=== PATIENT | female | born 1940 | race Caucasian/White ===

== ENCOUNTER → 2017-11-02 | Outpatient (CLI) | payer OTHER ==
[~2017-11-02] MED LIST: ACET-66 PO; AMLO5TAB5 PO; BUDE10.2 IH; BUSP15TA3 PO; FENO145T37 PO; LEVO150T6 PO; MONT10TA21 PO; PROVENTIL HFA PO; RIVA10TA PO; TEMA15CA5 PO; TRAM50TA4 PO; citalopram PO
== END | disposition home or self-care (01) ==
LOC: RAH 15:01
PROVIDERS: ATTEND Internal Medicine
DX: Z12.31 Encounter for screening mammogram for malignant neoplasm of breast (principal)
CPT/HCPCS: 77067

== ENCOUNTER → 2018-06-10 | Outpatient (CLI) | payer OTHER | END | disposition home or self-care (01) | LOC: RAH 09:39 | PROVIDERS: ATTEND Internal Medicine | DX: I11.9 Hypertensive heart disease without heart failure (principal); R06.00 Dyspnea, unspecified; F17.200 Nicotine dependence, unspecified, uncomplicated | CPT/HCPCS: 93306 ==

== ENCOUNTER → 2018-06-21 | Outpatient (CLI) | payer OTHER | END | disposition home or self-care (01) | LOC: RAH 13:40 | PROVIDERS: ATTEND Internal Medicine | DX: I25.10 Atherosclerotic heart disease of native coronary artery without angina pectoris (principal); R06.00 Dyspnea, unspecified; N20.0 Calculus of kidney; J84.10 Pulmonary fibrosis, unspecified; F17.200 Nicotine dependence, unspecified, uncomplicated | CPT/HCPCS: 71250 ==

== ENCOUNTER → 2018-07-25 | Outpatient (CLI) | payer OTHER | END | disposition home or self-care (01) | LOC: OIH 14:44 | PROVIDERS: ATTEND Internal Medicine | DX: Z13.6 Encounter for screening for cardiovascular disorders (principal) | CPT/HCPCS: 75571 ==

== ENCOUNTER → 2018-08-23 | Outpatient (CLI) | payer OTHER ==
[~2018-08-23] VITALS: Ht 167.6 cm; Wt 119.3 kg
[~2018-08-23] MED LIST changes: +REGADENOSON 0.4 MG/5 ML PF SYG IVP SCH
== END | disposition home or self-care (01) ==
LOC: RAH 08:54
PROVIDERS: ATTEND Internal Medicine
DX: I50.9 Heart failure, unspecified (principal); R94.30 Abnormal result of cardiovascular function study, unspecified
CPT/HCPCS: 78452; 93017; 96374; A9500 ×2; J2785

== ENCOUNTER 2018-10-17 05:53 | Day surgery (SDC) | payer OTHER ==
[2018-10-15 13:50] VITALS: BP 146/71
[2018-10-15 14:15] VITALS: BP 146/71
[2018-10-15 14:15] LABS: EOSINOPHILS % (AUTO) 1.7 % (0.0-8.0); HEMATOCRIT 45.3 % (36-48); LYMPHOCYTES % (AUTO) 20.5 % (21.0-51.0); MEAN CORPUSCULAR HEMOGLOBIN 30.9 pg (27.0-33.0); MEAN CORPUSCULAR VOLUME 90.7 fL (79-99); MONOCYTES % (AUTO) 9.1 % (3.0-13.0); NEUTROPHILS % (AUTO) 67.7 % (40.0-77.0); PLATELET COUNT (AUTO) 199 K/uL (130-400); WHITE BLOOD COUNT (AUTO) 9.7 K/uL (4.8-10.8)
[2018-10-15 14:25] LABS: APPEARANCE,URINE CLEAR (CLEAR); BILIRUBIN,URINE NEGATIVE (NEGATIVE); COLOR,URINE YELLOW (YELLOW); GLUCOSE, URINE (UA) NEGATIVE (NEGATIVE); KETONES,URINE NEGATIVE (NEGATIVE); LEUKOCYTE ESTERASE ,URINE LARGE (NEGATIVE); NITRATE,URINE NEGATIVE (NEGATIVE); OCCULT BLOOD,URINE TRACE-LYSED (NEGATIVE); PH,URINE 5.5 (5.0-8.0); PROTEIN,URINE NEGATIVE (NEGATIVE); UROBILINOGEN,URINE 0.2 mg/dL (0.2-1.0)
[2018-10-15 14:27] LABS: INR 0.93 (0.85-1.15); PARTIAL THROMBOPLASTIN TIME 25.5 SEC (26.3-35.5); PROTHROMBIN TIME 9.8 SEC (9.6-11.6)
[2018-10-15 14:35] LABS: CREATININE 1.1 mg/dL (0.5-1.5); POTASSIUM 3.6 mmol/L (3.5-5.1)
[2018-10-15 14:40] LABS: SQUAMOUS EPITHELIAL CELL,UR 0-2 /HPF (0-2)
[2018-10-15 14:41] LABS: BACTERIA,URINE Few /HPF (None Seen)
--- NOTE | 2018-10-16 11:41 | NUR ---
LABS ABNORMAL UA FAXED TO [facility] (DR Ronald GRANADOS) PER THERE REQUEST, AWAITING FOR FURTHER ORDERS IF ANY.
--- NOTE | 2018-10-16 16:43 | NUR ---
LABS RECEIVED ORDERS FROM ABNORMAL UA REPORTED EARLIER, URINE CULTURE ORDERED.
[2018-10-17] VITALS (9 sets, daily range): BP systolic 117–140; BP diastolic 45–69
[~2018-10-17] VITALS: Ht 165.3 cm; Wt 122.0 kg
[~2018-10-17 05:53] MED LIST changes: -ACET-66 PO; +AEC81 PO; +ALBU2.5V2 IH; +ALBU90AE IH; +AMLO5TAB9 PO; -BUDE10.2 IH; -BUSP15TA3 PO; +CHLO4TAB32 PO; +ESOM40CA PO; -FENO145T37 PO; +FLUT1BLS3 IH; +FURO40TA5 PO; +ISOS20TA7 PO; +ISOS60TA4 PO; -LEVO150T6 PO; +LEVO175T9 PO; +MV-M1TAB57 PO; +NITR0.4T50 SL; -PROVENTIL HFA PO; -REGADENOSON 0.4 MG/5 ML PF SYG IVP SCH; -RIVA10TA PO; +ROSU5TAB11 PO; -TEMA15CA5 PO; -TRAM50TA4 PO; +WHEA1POW2 PO; -citalopram PO
[2018-10-17] MEDS ORDERED: SODIUM CHLORIDE 0.9% 1000ML 1,000 ML IV ONE (06:07)
[2018-10-17] MEDS ORDERED: ALLERGY SHOTS IM (07:19)
[2018-10-17] MEDS ORDERED: XOLAIR IM (07:19)
[2018-10-17] MEDS ORDERED: IOHEXOL 350 MG/ML 100ML INFUS..BTL IV ONE (08:47)
[2018-10-17] MEDS ORDERED: IOHEXOL-350 50ML VIAL IV ONE (08:47)
[2018-10-17] MEDS ORDERED: LIDOCAINE HCL 1% 20 ML VIAL ONE (08:47)
[2018-10-17] MEDS ORDERED: NITROGLYCERIN 5 MG/ML 10 ML VIAL IV ONE (08:47)
[2018-10-17] MEDS ORDERED: MIDAZOLAM HCL 1 MG/ML 2ML VIAL ONE (08:47)
[2018-10-17] MEDS ORDERED: BIVALIRUDIN 250 MG/VIAL IV ONE (08:48)
--- NOTE | 2018-10-17 09:00 | NUR ---
procedure pt taken to laborer tin can for procedure. family at bedside. pt awake and alert
[2018-10-17] MEDS ORDERED: SODIUM CHLORIDE 0.9% 1000ML 1,000 ML IV SCH (09:45)
--- NOTE | 2018-10-17 10:15 | NUR ---
POST RECEIVED PT FROM LOAD BLOCKER, S/P [facility], PT AWAKE AND ALERT, NO DISTRESS NOTED. DENIES ANY PAIN OR DISCOMFORTS. RIGHT GROIN DRESSING DRY AND INTACT, SEE POST LOAD BLOCKER ASSESSMENT ,VS STABLE . PT INSTRUCTED TO KEEP BEDREST FOR 4 HRS. PLAN OF CARE DISCUSS WITH PATIENT AND FAMILY. DR Ronald GRANADOS SPOKE TO FAMILY ABOUT [facility] FINDINGS.
--- NOTE | 2018-10-17 14:00 | NUR ---
DC DC INSTRUCTIONS GIVEN TO PT / PT S DAUGHTER WITH RX, INSTRUCTED TO F/U WITH DR. GRANADOS, DR. Robel BONE, INSTRUCTED ON NEW MED REGIMEN. PIV REMOVED. CATHETER INTACT, SITE ASYMPTOMATIC, RIGHT GROIN DRESSING DRY AND INTACT, NO HEMATOMA OR BLEEDING TO SITE. VS STABLE.
--- NOTE | 2018-10-17 14:30 | NUR ---
DC PT DC HOME VIA WC,NO DISTRESS NOTED. ACCOMPANIED BY DAUGHTER, RIGHT GROIN DRESSING DRY AND INTACT
== END 2018-10-17 14:30 | disposition home or self-care (01) ==
LOC: DAH 05:53
PROVIDERS: ATTEND Internal Medicine Cardiovascular Disease
DX: I25.118 Atherosclerotic heart disease of native coronary artery with other forms of angina pectoris (principal); I10 Essential (primary) hypertension; E78.5 Hyperlipidemia, unspecified; J45.909 Unspecified asthma, uncomplicated; E66.01 Morbid (severe) obesity due to excess calories; Z79.899 Other long term (current) drug therapy; Z98.890 Other specified postprocedural states; M19.90 Unspecified osteoarthritis, unspecified site; Z88.8 Allergy status to other drugs, medicaments and biological substances; Z88.2 Allergy status to sulfonamides; Z68.41 Body mass index [BMI] 40.0-44.9, adult; R94.39 Abnormal result of other cardiovascular function study; Z79.01 Long term (current) use of anticoagulants
CPT/HCPCS: 36415; 71045; 80048; 81001; 85025; 85610; 85730; 87077; 87088; 87186; 93005; 93458; A4606; C1760; C1894; J1644; J3490; J7030; Q9965; Q9967 ×2; J0583; J2250

== ENCOUNTER → 2018-11-18 | Outpatient (CLI) | payer OTHER ==
[~2018-11-18] MED LIST changes: +ALLERGY SHOTS IM; -AMLO5TAB5 PO; -ISOS20TA7 PO; -ISOS60TA4 PO; -ROSU5TAB11 PO; +ROSU5TAB12 PO; +XOLAIR IM
== END | disposition home or self-care (01) ==
LOC: RAH 10:37
PROVIDERS: ATTEND Internal Medicine
DX: Z12.31 Encounter for screening mammogram for malignant neoplasm of breast (principal)
CPT/HCPCS: 77067

== ENCOUNTER → 2019-01-24 | Outpatient (CLI) | payer OTHER | END | disposition home or self-care (01) | LOC: RAH 11:06 | PROVIDERS: ATTEND Internal Medicine | DX: R22.31 Localized swelling, mass and lump, right upper limb (principal) | CPT/HCPCS: 76882 ==

== ENCOUNTER → 2019-03-27 | Outpatient (CLI) | payer OTHER | END | disposition home or self-care (01) | LOC: OIH 11:48 | PROVIDERS: ATTEND Internal Medicine | DX: S33.140A Subluxation of L4/L5 lumbar vertebra, initial encounter (principal); M47.816 Spondylosis without myelopathy or radiculopathy, lumbar region; M43.26 Fusion of spine, lumbar region; N20.0 Calculus of kidney; M25.551 Pain in right hip; W10.8XXA Fall (on) (from) other stairs and steps, initial encounter; Y93.89 Activity, other specified; Y92.89 Other specified places as the place of occurrence of the external cause; Y99.8 Other external cause status | CPT/HCPCS: 72100; 72220; 73502 ==

== ENCOUNTER → 2020-10-20 | Outpatient (CLI) | payer MEDICARE ==
[~2020-10-20] MED LIST changes: +ALBUTEROL SULFATE 0.083% 2.5 MG/3 ML INH IH ONE; +AMLO-257 PO; -AMLO5TAB9 PO
== END | disposition home or self-care (01) ==
LOC: RESP 10:41
PROVIDERS: ATTEND Allergy & Immunology
DX: J45.41 Moderate persistent asthma with (acute) exacerbation (principal); R06.02 Shortness of breath
CPT/HCPCS: 94060; 94727; 94729

== ENCOUNTER → 2021-02-11 | Outpatient (CLI) | payer MEDICARE ==
[~2021-02-11] MED LIST changes: -ALBUTEROL SULFATE 0.083% 2.5 MG/3 ML INH IH ONE
== END | disposition home or self-care (01) ==
LOC: RAH 11:33
PROVIDERS: ATTEND Internal Medicine
DX: Z01.811 Encounter for preprocedural respiratory examination (principal); J44.9 Chronic obstructive pulmonary disease, unspecified; J98.4 Other disorders of lung
CPT/HCPCS: 71046

== ENCOUNTER 2021-02-24 10:09 | Day surgery (SDC) | payer MEDICARE ==
[2021-02-22 11:50] LABS: BASOPHILS % (AUTO) 1.3 % (0.0-5.0); EOSINOPHILS % (AUTO) 2.5 % (0.0-8.0); HEMATOCRIT 47.2 % (36-48); LYMPHOCYTES % (AUTO) 26.4 % (21.0-51.0); MEAN CORPUSCULAR HEMOGLOBIN 31.3 pg (27.0-33.0); MEAN CORPUSCULAR HGB CONC 33.5 g/dL (32.0-36.0); MEAN CORPUSCULAR VOLUME 93.7 fL (79-99); MONOCYTES % (AUTO) 8.8 % (3.0-13.0); NEUTROPHILS % (AUTO) 60.7 % (40.0-77.0); PLATELET COUNT (AUTO) 221 K/uL (130-400); RED BLOOD CELL COUNT(AUTO) 5.04 MIL/uL (4.00-5.50); RED CELL DISTRIBUTION WIDTH 13.6 % (11.0-15.5); WHITE BLOOD COUNT (AUTO) 8.8 K/uL (4.8-10.8)
[2021-02-22 12:12] LABS: CREATININE 1.1 mg/dL (0.5-1.5); POTASSIUM 4.3 mmol/L (3.5-5.1)
[2021-02-23 15:30] VITALS: BP 139/66
[~2021-02-24] VITALS: Ht 170.2 cm; Wt 119.3 kg
[2021-02-24] VITALS (13 sets, daily range): BP systolic 129–149; BP diastolic 65–81
[~2021-02-24 10:09] MED LIST changes: -AEC81 PO; -ALLERGY SHOTS IM; +AMLO2.5T4 PO; +CEFAZOLIN SODIUM 1 GM VIAL IVP ONE; -ESOM40CA PO; +MELA1TAB17 PO; -NITR0.4T50 SL; +OMEGA 3 PO; +TRIA10.8 NS; -WHEA1POW2 PO
[2021-02-24] MEDS ORDERED: CEFAZOLIN SODIUM 1 GM VIAL ONE (10:30)
[2021-02-24] MEDS: 0.9%NACL 1000ML 1,000 ML IV SCH ×2 (11:24→17:37)
[2021-02-24] MEDS ORDERED: CHOL500045 PO (11:40)
[2021-02-24] MEDS ORDERED: VITAMIN B6 PO (11:40)
[2021-02-24] MEDS ORDERED: ACET-3194 PO (11:40)
[2021-02-24] MEDS ORDERED: ASCO500C18 PO (11:40)
[2021-02-24] MEDS ORDERED: TURM500C9 PO (11:40)
[2021-02-24] MEDS ORDERED: BISA5TAB12 PO (11:40)
[2021-02-24] MEDS ORDERED: BUPIVACAINE/PF 0.25% 30ML VIAL IJ ONE (16:13)
[2021-02-24] MEDS ORDERED: LIDOCAINE HCL/EPINEPHRINE 30 ML VIAL IJ ONE (16:13)
[2021-02-24] MEDS ORDERED: MIDAZOLAM HCL 1 MG/ML 2ML VIAL ONE (16:35)
[2021-02-24] MEDS ORDERED: SUCCINYLCHOLINE 200MG/10ML SYR ONE (16:35)
[2021-02-24] MEDS ORDERED: PROPOFOL 10 MG/ML 20ML VIAL IV ONE (16:35)
[2021-02-24] MEDS ORDERED: LIDOCAINE HCL MPF 1% 5ML VIAL ONE (16:35)
[2021-02-24] MEDS ORDERED: FENTANYL CITRATE PF 50 MCG/1 ML 2ML VIAL ONE (16:35)
[2021-02-24] MEDS ORDERED: ROCURONIUM 10MG/1ML SYR 10 MG/ML ML ONE (16:35)
[2021-02-24] MEDS ORDERED: GLYCOPYRROLATE 1 MG/5 ML SYRINGE ONE (16:37)
[2021-04-12] MEDS ORDERED: AMLO-257 PO (10:29)
== END 2021-02-24 18:30 | disposition home or self-care (01) ==
LOC: DAH 10:09
PROVIDERS: ATTEND Student in an Organized Health Care Education/Training Program
DX: D17.1 Benign lipomatous neoplasm of skin and subcutaneous tissue of trunk (principal); Z20.822 Contact with and (suspected) exposure to COVID-19; J44.9 Chronic obstructive pulmonary disease, unspecified; I10 Essential (primary) hypertension; E66.01 Morbid (severe) obesity due to excess calories; M19.90 Unspecified osteoarthritis, unspecified site; E78.5 Hyperlipidemia, unspecified; Z90.49 Acquired absence of other specified parts of digestive tract; Z98.890 Other specified postprocedural states; Z90.89 Acquired absence of other organs; Z86.010 Personal history of colon polyps; Z91.040 Latex allergy status; Z88.8 Allergy status to other drugs, medicaments and biological substances; Z88.6 Allergy status to analgesic agent; Z88.1 Allergy status to other antibiotic agents; Z68.41 Body mass index [BMI] 40.0-44.9, adult
CPT/HCPCS: 21933; 36415; 80048; 85025; 87635; 93005; A4215; A4221; A4222; A4223; A4663; A4930 ×2; C9803; G0168; J0330; J0690; J2250; J2704; J3010; J3490 ×3; J7030

== ENCOUNTER 2021-04-13 06:26 | Observation (INO) | payer MEDICARE ==
[2021-04-11 16:31] LABS: EOSINOPHILS % (AUTO) 3.1 % (0.0-8.0); HEMATOCRIT 46.6 % (36-48); LYMPHOCYTES % (AUTO) 26.5 % (21.0-51.0); MEAN CORPUSCULAR HEMOGLOBIN 30.7 pg (27.0-33.0); MEAN CORPUSCULAR HGB CONC 33.7 g/dL (32.0-36.0); MONOCYTES % (AUTO) 9.4 % (3.0-13.0); NEUTROPHILS % (AUTO) 59.7 % (40.0-77.0); PLATELET COUNT (AUTO) 257 K/uL (130-400); RED BLOOD CELL COUNT(AUTO) 5.12 MIL/uL (4.00-5.50); WHITE BLOOD COUNT (AUTO) 10.7 K/uL (4.8-10.8)
[2021-04-11 16:33] LABS: BILIRUBIN,URINE Negative (NEGATIVE); COLOR,URINE Yellow (YELLOW); GLUCOSE, URINE (UA) Negative (NEGATIVE); KETONES,URINE Negative (NEGATIVE); LEUKOCYTE ESTERASE ,URINE Large (NEGATIVE); NITRATE,URINE Positive (NEGATIVE); OCCULT BLOOD,URINE Moderate (NEGATIVE); PROTEIN,URINE POS 1+ mg/dL (NEGATIVE)
[2021-04-11 16:39] LABS: APPEARANCE,URINE CLOUDY (CLEAR)
[2021-04-11 16:39] LABS: CREATININE 1.2 mg/dL (0.5-1.5); POTASSIUM 4.1 mmol/L (3.5-5.1)
[2021-04-11 16:42] LABS: INR 0.97 (0.85-1.15); PROTHROMBIN TIME 10.6 SEC (9.6-11.6)
[2021-04-11 16:53] LABS: CALCIUM OXALATE CRYSTALS,UR Few /LPF (None Seen); RBC,URINE 0-1 /HPF (0-1); SQUAMOUS EPITHELIAL CELL,UR Few /HPF (0-2)
[2021-04-11 16:54] LABS: BACTERIA,URINE Moderate /HPF (None Seen)
[2021-04-12 10:11] VITALS: BP 161/70
[2021-04-13] VITALS (24 sets, daily range): BP systolic 128–156; BP diastolic 51–95
[~2021-04-13] VITALS: Ht 167.6 cm; Wt 118.6 kg
[~2021-04-13 06:26] MED LIST changes: +ACET-3194 PO; -ALBU2.5V2 IH; +ASCO500C18 PO; +BISA5TAB12 PO; -CEFAZOLIN SODIUM 1 GM VIAL IVP ONE; +CHOL500045 PO; +TURM500C9 PO; +VITAMIN B6 PO
[2021-04-13] MEDS ORDERED: GENTAMICIN SULFATE 240 MG in 0.9%NACL 100ML 100 ML IV PRN (08:00)
[2021-04-13] MEDS ORDERED: LACTATED RINGERS 1000ML 1,000 ML IV ONE (08:11)
[2021-04-13] MEDS ORDERED: TRANEXAMIC ACID 1000MG/10ML ONE ×2 (08:35→13:25)
[2021-04-13] MEDS ORDERED: CEFAZOLIN SODIUM 1 GM VIAL ONE (08:36)
[2021-04-13] MEDS: CEFAZOLIN SODIUM 1 GM VIAL IVP ONE ×2 (08:56→10:31)
[2021-04-13] MEDS ORDERED: PROPOFOL 10 MG/ML 20ML VIAL IV ONE ×2 (10:01→13:06)
[2021-04-13] MEDS ORDERED: ONDANSETRON 4MG INJ ONE (10:01)
[2021-04-13] MEDS ORDERED: SUCCINYLCHOLINE CHLORIDE 20 MG/ML 10 ML VIAL ONE ×2 (10:01→10:03)
[2021-04-13] MEDS ORDERED: DEXAMETHASONE SOD PHOSPHATE 10MG/ML 1ML VIAL ONE (10:01)
[2021-04-13] MEDS ORDERED: LIDOCAINE PF 100MG/5ML (2%) SYRINGE 5ML ONE ×2 (10:01→10:02)
[2021-04-13] MEDS ORDERED: ROPIVACAINE 0.5% 5MG/ML 30ML IJ ONE (10:01)
[2021-04-13] MEDS ORDERED: MIDAZOLAM HCL 1 MG/ML 2ML VIAL ONE (10:02)
[2021-04-13] MEDS ORDERED: GLYCOPYRROLATE 1 MG/5 ML SYRINGE ONE (10:02)
[2021-04-13] MEDS ORDERED: ROCURONIUM 10MG/1ML SYR 10 MG/ML ML ONE (10:02)
[2021-04-13] MEDS ORDERED: NEOSTIGMINE 5MG/5ML SYR IV ONE (10:02)
[2021-04-13] MEDS ORDERED: POTASSIUM CHLORIDE 20MEQ/100ML 100 ML IV PRN (13:00)
[2021-04-13] MEDS ORDERED: KCL 20 MEQ ERTAB PO PRN (13:00)
[2021-04-13] MEDS: 0.9%NACL 1000ML 1,000 ML IV SCH ×2 (13:00→23:00)
[2021-04-13] MEDS ORDERED: DiphenhydrAMINE HCL 50 MG/ML VIAL IVP PRN (13:00)
[2021-04-13] MEDS ORDERED: POTASSIUM CHLORIDE 10% ELIXIR 20 MEQ/15 ML UDCUP PO PRN (13:00)
[2021-04-13] MEDS ORDERED: LIDOCAINE HCL-MPF 1% 2ML VIAL IV PRN (13:00)
[2021-04-13] MEDS ORDERED: CALCIUM CARB 500MG PO PRN (13:00)
[2021-04-13] MEDS ORDERED: FERROUS FUMARATE 324 MG TABLET PO PRN (13:00)
[2021-04-13] MEDS ORDERED: TEMAZEPAM 15 MG CAPSULE PO PRN (13:00)
[2021-04-13] MEDS: ONDANSETRON 4MG INJ IVP PRN (13:43)
[2021-04-13] MEDS: KETOROLAC 15MG/ML VIAL (15MG/ML) IV PRN ×2 (14:00→20:01)
[2021-04-13] MEDS ORDERED: CHLORPHENIRAMINE MALEATE 4 MG PO PRN (16:30)
[2021-04-13] MEDS ORDERED: FLUTICASONE PROPIONATE 50MCG/SPRAY 16 GM BOTTLE NS PRN (16:30)
[2021-04-13] MEDS ORDERED: ACETAMINOPHEN 325 MG TAB PO PRN (16:30)
[2021-04-13] MEDS ORDERED: ALBUTEROL 0.083% 2.5 MG/3 ML INH IH PRN (16:30)
[2021-04-13] MEDS: FAMOTIDINE 20MG TAB PO SCH (18:21)
[2021-04-13] MEDS: CEFAZOLIN SODIUM 1 GM VIAL IVP SCH (18:21)
[2021-04-13] MEDS: BISACODYL 5 MG TABLET.DR PO SCH (19:59)
[2021-04-13] MEDS: PREGABALIN 25 MG CAP PO SCH (19:59)
[2021-04-13] MEDS: MONTELUKAST SODIUM 10 MG TAB PO SCH (20:00)
[2021-04-13] MEDS: AMLODIPINE 2.5 MG TAB PO SCH (20:00)
[2021-04-13] MEDS: ATORVASTATIN 10 MG TABLET PO SCH (20:00)
[2021-04-13] MEDS: **HM**(Fluticasone/Umeclidin/Vilanter (Trelegy Ellipta 100-62.5- IH SCH (20:09)
[2021-04-13] MEDS ORDERED: AMLODIPINE 5 MG TAB PO SCH (21:00)
[2021-04-14] VITALS: BP 125/54
[2021-04-14] MEDS: CEFAZOLIN SODIUM 1 GM VIAL IVP SCH (02:22)
[2021-04-14] MEDS: ACETAMINOPHEN 500 MG TABLET PO PRN ×2 (02:28→10:10)
[2021-04-14 03:56] VITALS: BP 112/50
[2021-04-14 05:46] LABS: CREATININE 1.2 mg/dL (0.5-1.5); HEMATOCRIT 36.9 % (36-48); MEAN CORPUSCULAR HGB CONC 34.1 g/dL (32.0-36.0); MEAN CORPUSCULAR VOLUME 90.7 fL (79-99); POTASSIUM 3.8 mmol/L (3.5-5.1); RED BLOOD CELL COUNT(AUTO) 4.07 MIL/uL (4.00-5.50); RED CELL DISTRIBUTION WIDTH 13.8 % (11.0-15.5); WHITE BLOOD COUNT (AUTO) 10.8 K/uL (4.8-10.8)
[2021-04-14] MEDS: LEVOTHYROXINE 100 MCG TABLET PO SCH (06:26)
[2021-04-14] MEDS: LEVOTHYROXINE 75 MCG TABLET PO SCH (06:26)
[2021-04-14 07:30] VITALS: BP 126/52
[2021-04-14] MEDS ORDERED: LEVO175T9 PO (08:16)
[2021-04-14] MEDS: 0.9%NACL 1000ML 1,000 ML IV SCH (09:00)
[2021-04-14] MEDS: **HM**Cholecalciferol (Vitamin D3) (Vitamin D3) 125 MCG PO SCH (09:00)
[2021-04-14] MEDS: FUROSEMIDE 40 MG TABLET PO SCH (09:00)
[2021-04-14] MEDS: APIXABAN 2.5 MG TABLET PO SCH ×2 (09:48→19:53)
[2021-04-14] MEDS: PREGABALIN 25 MG CAP PO SCH ×2 (09:49→19:54)
[2021-04-14] MEDS: AMLODIPINE 5 MG TAB PO SCH (09:49)
[2021-04-14] MEDS: PYRIDOXINE HCL 50 MG TABLET PO SCH (09:49)
[2021-04-14] MEDS: ASCORBIC ACID 500 MG TAB PO SCH (09:49)
[2021-04-14] MEDS: FAMOTIDINE 20MG TAB PO SCH (09:49)
[2021-04-14] MEDS: POLYETHYLENE GLYCOL 3350 17 GM POWD.PACK PO SCH (10:04)
[2021-04-14 11:00] VITALS: BP 186/75
[2021-04-14] MEDS: KETOROLAC 15MG/ML VIAL (15MG/ML) IV PRN (12:10)
[2021-04-14] MEDS: BISACODYL 5 MG TABLET.DR PO SCH (19:53)
[2021-04-14] MEDS: ATORVASTATIN 10 MG TABLET PO SCH (19:53)
[2021-04-14] MEDS: MONTELUKAST SODIUM 10 MG TAB PO SCH (19:54)
[2021-04-14] MEDS: AMLODIPINE 2.5 MG TAB PO SCH (19:54)
[2021-04-14] MEDS: **HM**(Fluticasone/Umeclidin/Vilanter (Trelegy Ellipta 100-62.5- IH SCH (19:58)
[2021-04-14 20:00] VITALS: BP 134/54
[2021-04-15] VITALS: BP 141/67
[2021-04-15] MEDS: ONDANSETRON 4MG INJ IVP PRN (03:33)
[2021-04-15] MEDS: KETOROLAC 15MG/ML VIAL (15MG/ML) IV PRN (03:34)
[2021-04-15 04:00] VITALS: BP 154/52
[2021-04-15] MEDS: LEVOTHYROXINE 100 MCG TABLET PO SCH (05:15)
[2021-04-15] MEDS: LEVOTHYROXINE 75 MCG TABLET PO SCH (05:15)
[2021-04-15 07:32] VITALS: BP 125/61
[2021-04-15] MEDS: ASCORBIC ACID 500 MG TAB PO SCH (08:27)
[2021-04-15] MEDS: PYRIDOXINE HCL 50 MG TABLET PO SCH (08:27)
[2021-04-15] MEDS: PREGABALIN 25 MG CAP PO SCH ×2 (08:27→19:24)
[2021-04-15] MEDS: FAMOTIDINE 20MG TAB PO SCH (08:27)
[2021-04-15] MEDS: AMLODIPINE 5 MG TAB PO SCH (08:27)
[2021-04-15] MEDS: APIXABAN 2.5 MG TABLET PO SCH ×2 (08:28→19:25)
[2021-04-15] MEDS: POLYETHYLENE GLYCOL 3350 17 GM POWD.PACK PO SCH (08:28)
[2021-04-15] MEDS: **HM**Cholecalciferol (Vitamin D3) (Vitamin D3) 125 MCG PO SCH (08:28)
[2021-04-15] MEDS: FUROSEMIDE 40 MG TABLET PO SCH (08:34)
[2021-04-15 10:49] VITALS: BP 142/69
[2021-04-15 16:45] VITALS: BP 145/68
[2021-04-15] MEDS ORDERED: APIX2.5T PO (16:48)
[2021-04-15] MEDS ORDERED: ACET-2743 PO (16:48)
[2021-04-15] MEDS ORDERED: KETO10TA2 PO (16:48)
[2021-04-15] MEDS: **HM**(Fluticasone/Umeclidin/Vilanter (Trelegy Ellipta 100-62.5- IH SCH (19:15)
[2021-04-15] MEDS: ACETAMINOPHEN 500 MG TABLET PO PRN (19:24)
[2021-04-15] MEDS: ATORVASTATIN 10 MG TABLET PO SCH (19:25)
[2021-04-15] MEDS: MONTELUKAST SODIUM 10 MG TAB PO SCH (19:25)
[2021-04-15] MEDS: AMLODIPINE 2.5 MG TAB PO SCH (19:25)
[2021-04-15] MEDS: BISACODYL 5 MG TABLET.DR PO SCH (19:25)
[2021-04-16] MEDS ORDERED: BISACODYL 10 MG SUPP.RECT RC PRN (13:00)
== END 2021-04-15 22:56 ==
LOC: DAH 06:26 → DAHIP 06:27 → 4BH 14:37
PROVIDERS: ADMIT Orthopaedic Surgery; ATTEND Orthopaedic Surgery
DX: M17.12 Unilateral primary osteoarthritis, left knee (principal); Z20.822 Contact with and (suspected) exposure to COVID-19; I10 Essential (primary) hypertension; J44.9 Chronic obstructive pulmonary disease, unspecified; E78.5 Hyperlipidemia, unspecified; D17.9 Benign lipomatous neoplasm, unspecified; K63.5 Polyp of colon; N20.0 Calculus of kidney; Z96.651 Presence of right artificial knee joint; Z79.899 Other long term (current) drug therapy; Z98.890 Other specified postprocedural states
CPT/HCPCS: 27447; 36415 ×2; 64447; 64450; 76942; 80048 ×2; 81001; 85025; 85027; 85610; 87088; 87635; 87641; 93005; 94664; 96365; 96366; 96375; 96376 ×3; 97039 ×4; 97116 ×4; 97161; 97530 ×3; A4215; A4216; A4221; A4222; A4223 ×2; A4649 ×5; A4663; A9272; C1776; C9803; G0378 ×54; J0330 ×2; J0690 ×4; J1100; J1885 ×4; J2001 ×2; J2250; J2405 ×3; J2704 ×2; J2710; J2795; J3490 ×3; J7030; J7120

== ENCOUNTER 2021-09-20 19:24 | Observation (INO) | payer MEDICARE ==
[~2021-09-20] VITALS: Ht 167.6 cm; Wt 117.9 kg
[~2021-09-20 19:24] MED LIST changes: +ACET-2743 PO; -ACET-3194 PO; -AMLO2.5T4 PO; +APIX2.5T PO; +KETO10TA2 PO
[2021-09-20] MEDS ORDERED: 0.9%NACL 1000ML 1,000 ML IV ONE ×3 (19:53→21:30)
[2021-09-20 20:13] LABS: BASOPHILS % (AUTO) 0.8 % (0.0-5.0); EOSINOPHILS % (AUTO) 3.5 % (0.0-8.0); HEMATOCRIT 39.1 % (36-48); LYMPHOCYTES % (AUTO) 24.6 % (21.0-51.0); MEAN CORPUSCULAR HEMOGLOBIN 30.7 pg (27.0-33.0); MEAN CORPUSCULAR HGB CONC 33.5 g/dL (32.0-36.0); MEAN CORPUSCULAR VOLUME 91.6 fL (79-99); MONOCYTES % (AUTO) 9.4 % (3.0-13.0); NEUTROPHILS % (AUTO) 61.3 % (40.0-77.0); PLATELET COUNT (AUTO) 237 K/uL (130-400); RED BLOOD CELL COUNT(AUTO) 4.27 MIL/uL (4.00-5.50); RED CELL DISTRIBUTION WIDTH 13.6 % (11.0-15.5); WHITE BLOOD COUNT (AUTO) 12.1 K/uL (4.8-10.8)
[2021-09-20 20:23] LABS: CREATININE 1.9 mg/dL (0.5-1.5); POTASSIUM 3.6 mmol/L (3.5-5.1)
[2021-09-20 20:33] LABS: ALBUMIN 3.3 g/dL (3.5-5.0); BILIRUBIN,TOTAL 0.7 mg/dL (0.2-1.0); TOTAL PROTEIN, SERUM 6.8 g/dL (6.0-8.3)
[2021-09-20 20:46] LABS: APPEARANCE,URINE CLOUDY (CLEAR); BILIRUBIN,URINE NEGATIVE (NEGATIVE); COLOR,URINE YELLOW (YELLOW); GLUCOSE, URINE (UA) NEGATIVE (NEGATIVE); KETONES,URINE NEGATIVE (NEGATIVE); LEUKOCYTE ESTERASE ,URINE LARGE (NEGATIVE); NITRATE,URINE POSITIVE (NEGATIVE); OCCULT BLOOD,URINE TRACE-INTACT (NEGATIVE); PH,URINE 5.5 (5.0-8.0); PROTEIN,URINE NEGATIVE (NEGATIVE); UROBILINOGEN,URINE 0.2 mg/dL (0.2-1.0)
[2021-09-20 20:52] LABS: BACTERIA,URINE Few /HPF (None Seen); HYALINE CASTS, URINE 0-1 /LPF (0-1 /LPF); MUCUS,URINE Rare LPF (None Seen); SQUAMOUS EPITHELIAL CELL,UR Few /HPF (0-2)
[2021-09-20] MEDS ORDERED: ONDANSETRON 4MG INJ IV PRN (21:30)
[2021-09-20] MEDS ORDERED: CEFTRIAXONE 2GM VIAL IVP ONE (21:30)
[2021-09-20] MEDS ORDERED: LOSA100T58 PO (22:43)
[2021-09-20] MEDS ORDERED: PATADAY OU (22:43)
[2021-09-20] MEDS ORDERED: SPIR25TA6 PO (22:43)
[2021-09-20] MEDS ORDERED: BISA5TAB12 PO (22:43)
[2021-09-20] MEDS ORDERED: ASCO100T12 PO (22:43)
[2021-09-20 23:30] VITALS: BP 120/62
[2021-09-20] MEDS: 0.9%NACL 1000ML 1,000 ML IV SCH (23:47)
[2021-09-21] MEDS: ACETAMINOPHEN 325 MG TAB PO PRN ×2 (00:18→09:34)
[2021-09-21] MEDS ORDERED: FURO40TA5 PO (00:46)
[2021-09-21] MEDS ORDERED: NIFE60TA81 PO (00:46)
[2021-09-21] MEDS ORDERED: POTASSIUM CHLORIDE 10% ELIXIR 20 MEQ/15 ML UDCUP PO PRN (01:00)
[2021-09-21] MEDS ORDERED: POTASSIUM CHLORIDE 20MEQ/100ML 100 ML IV PRN (01:00)
[2021-09-21] MEDS ORDERED: LIDOCAINE HCL-MPF 1% 2ML VIAL IV PRN (01:00)
[2021-09-21] MEDS ORDERED: KCL 20 MEQ ERTAB PO PRN (01:00)
[2021-09-21] MEDS ORDERED: LACTULOSE 20 GM/30 ML UDCUP PO PRN (01:00)
[2021-09-21] MEDS ORDERED: MAG/ALUM/SIMETH 30 ML UDCUP PO PRN (01:00)
[2021-09-21] MEDS ORDERED: DIPHENHYDRAMINE HCL 25 MG CAPSULE PO PRN (01:00)
[2021-09-21] MEDS ORDERED: FLUTICASONE PROPIONATE 50MCG/SPRAY 16 GM BOTTLE NS PRN (01:00)
[2021-09-21] MEDS ORDERED: ALBUTEROL INHALER 90MCG/INH IH PRN (03:30)
[2021-09-21 04:34] VITALS: BP 107/44
[2021-09-21 05:47] LABS: BASOPHILS % (AUTO) 0.7 % (0.0-5.0); EOSINOPHILS % (AUTO) 5.5 % (0.0-8.0); LYMPHOCYTES % (AUTO) 26.1 % (21.0-51.0); MEAN CORPUSCULAR HEMOGLOBIN 30.9 pg (27.0-33.0); MEAN CORPUSCULAR HGB CONC 33.8 g/dL (32.0-36.0); MEAN CORPUSCULAR VOLUME 91.6 fL (79-99); MONOCYTES % (AUTO) 9.7 % (3.0-13.0); NEUTROPHILS % (AUTO) 57.6 % (40.0-77.0); PLATELET COUNT (AUTO) 201 K/uL (130-400); RED BLOOD CELL COUNT(AUTO) 4.04 MIL/uL (4.00-5.50); RED CELL DISTRIBUTION WIDTH 13.6 % (11.0-15.5); WHITE BLOOD COUNT (AUTO) 7.5 K/uL (4.8-10.8)
[2021-09-21 05:48] LABS: CREATININE 1.4 mg/dL (0.5-1.5); POTASSIUM 4.3 mmol/L (3.5-5.1)
[2021-09-21] MEDS ORDERED: LEVOTHYROXINE 100 MCG TABLET PO SCH (06:48)
[2021-09-21] MEDS ORDERED: LEVOTHYROXINE 75 MCG TABLET PO SCH (06:50)
[2021-09-21 08:00] VITALS: BP 144/69
[2021-09-21] MEDS: ENOXAPARIN SODIUM 30 MG/0.3 ML SQ SCH ×2 (09:00→09:17)
[2021-09-21] MEDS: 0.9%NACL 1000ML 1,000 ML IV SCH (09:15)
[2021-09-21 12:00] VITALS: BP 109/46
[2021-09-21] MEDS ORDERED: CEPH500C2 PO (13:51)
[2021-09-21 14:40] VITALS: BP 149/65
[2021-09-21 18:27] VITALS: BP 153/74
[2021-09-21] MEDS ORDERED: ATORVASTATIN 10 MG TABLET PO SCH (21:00)
[2021-09-21] MEDS ORDERED: MONTELUKAST SODIUM 10 MG TAB PO SCH (21:00)
[2021-09-21] MEDS ORDERED: CEFTRIAXONE 1G VIAL IV SCH (21:30)
== END 2021-09-21 18:50 | disposition home or self-care (01) ==
LOC: EDH 19:24 → EDHIP 21:26 → 3BH 23:36
PROVIDERS: ADMIT Internal Medicine; ATTEND Internal Medicine
DX: I95.9 Hypotension, unspecified (principal); E86.0 Dehydration; N17.9 Acute kidney failure, unspecified; N39.0 Urinary tract infection, site not specified; J44.9 Chronic obstructive pulmonary disease, unspecified; M19.90 Unspecified osteoarthritis, unspecified site; E03.9 Hypothyroidism, unspecified; I13.0 Hypertensive heart and chronic kidney disease with heart failure and stage 1 through stage 4 chronic kidney disease, or unspecified chronic kidney disease; E11.22 Type 2 diabetes mellitus with diabetic chronic kidney disease; I50.32 Chronic diastolic (congestive) heart failure; N18.31 Chronic kidney disease, stage 3a; E66.01 Morbid (severe) obesity due to excess calories; J30.9 Allergic rhinitis, unspecified; E78.2 Mixed hyperlipidemia; N20.0 Calculus of kidney; M51.9 Unspecified thoracic, thoracolumbar and lumbosacral intervertebral disc disorder; Z68.41 Body mass index [BMI] 40.0-44.9, adult; Z87.891 Personal history of nicotine dependence; Z79.890 Hormone replacement therapy; Z87.892 Personal history of anaphylaxis; Z87.442 Personal history of urinary calculi; Z90.49 Acquired absence of other specified parts of digestive tract; Z96.653 Presence of artificial knee joint, bilateral
CPT/HCPCS: 36415 ×2; 71045; 80048; 80053; 81001; 83605; 84145; 84484; 85025 ×2; 87040 ×2; 87077; 87088; 87186; 93005; 96361 ×2; 96374; 99291; G0378 ×18; J0696; J1650; J7030

== ENCOUNTER 2021-10-31 12:00 | Inpatient (IN) | payer MEDICARE ==
[~2021-10-31] VITALS: Ht 167.6 cm; Wt 117.0 kg
[2021-10-31 11:19] LABS: BASOPHILS % (AUTO) 1.1 % (0.0-5.0); EOSINOPHILS % (AUTO) 2.8 % (0.0-8.0); HEMATOCRIT 45.3 % (36-48); LYMPHOCYTES % (AUTO) 24.3 % (21.0-51.0); MEAN CORPUSCULAR HEMOGLOBIN 31.5 pg (27.0-33.0); MEAN CORPUSCULAR HGB CONC 33.8 g/dL (32.0-36.0); MEAN CORPUSCULAR VOLUME 93.4 fL (79-99); MONOCYTES % (AUTO) 8.1 % (3.0-13.0); NEUTROPHILS % (AUTO) 63.3 % (40.0-77.0); PLATELET COUNT (AUTO) 216 K/uL (130-400); RED BLOOD CELL COUNT(AUTO) 4.85 MIL/uL (4.00-5.50); RED CELL DISTRIBUTION WIDTH 13.3 % (11.0-15.5); WHITE BLOOD COUNT (AUTO) 9.4 K/uL (4.8-10.8)
[2021-10-31 11:29] LABS: CREATININE 1.1 mg/dL (0.5-1.5); POTASSIUM 4.2 mmol/L (3.5-5.1)
[2021-10-31 11:36] LABS: APPEARANCE,URINE CLEAR (CLEAR); BILIRUBIN,URINE NEGATIVE (NEGATIVE); COLOR,URINE YELLOW (YELLOW); GLUCOSE, URINE (UA) NEGATIVE (NEGATIVE); KETONES,URINE NEGATIVE (NEGATIVE); LEUKOCYTE ESTERASE ,URINE LARGE (NEGATIVE); NITRATE,URINE NEGATIVE (NEGATIVE); OCCULT BLOOD,URINE NEGATIVE (NEGATIVE); PROTEIN,URINE NEGATIVE (NEGATIVE); UROBILINOGEN,URINE 0.2 mg/dL (0.2-1.0)
[2021-10-31 11:39] LABS: INR 0.93 (0.85-1.15)
[~2021-10-31 12:00] MED LIST changes: -ACET-2743 PO; -AMLO-257 PO; -APIX2.5T PO; -BISA5TAB12 PO; -CHLO4TAB32 PO; -FURO40TA5 PO; -KETO10TA2 PO; -MELA1TAB17 PO; -MV-M1TAB57 PO; -OMEGA 3 PO; -ROSU5TAB12 PO; -TRIA10.8 NS; -TURM500C9 PO; -VITAMIN B6 PO; -XOLAIR IM
[2021-10-31 12:13] LABS: BACTERIA,URINE Rare /HPF (None Seen); RBC,URINE 0-1 /HPF (0-1); SQUAMOUS EPITHELIAL CELL,UR Few /HPF (0-2)
[2021-11-01 11:50] VITALS: BP 160/65
[2021-11-01] MEDS ORDERED: LOSA50TA64 PO (14:17)
[2021-11-01] MEDS ORDERED: KETO10 PO (14:17)
[2021-11-01] MEDS ORDERED: LORA10TA7 PO (14:17)
[2021-11-01] MEDS ORDERED: FLUT15.845 NS (14:17)
[2021-11-01] MEDS ORDERED: ROSU5TAB12 PO (14:17)
[2021-11-01] MEDS ORDERED: FURO40TA5 PO (14:17)
[2021-11-01] MEDS ORDERED: NIFE30TA98 PO (14:17)
[2021-11-01] MEDS ORDERED: TRIA15CR48 TP (14:17)
[2021-11-02] VITALS (23 sets, daily range): BP systolic 90–144; BP diastolic 46–79
[2021-11-02] MEDS ORDERED: CEFAZOLIN SODIUM 2 GM VIAL IV SCH (05:00)
[2021-11-02] MEDS ORDERED: GENTAMICIN SULFATE 240 MG in 0.9%NACL 100ML 100 ML IV SCH (06:00)
[2021-11-02] MEDS ORDERED: CEFAZOLIN SODIUM 1 GM VIAL ONE (08:48)
[2021-11-02] MEDS ORDERED: LACTATED RINGERS 1000ML 1,000 ML IV ONE (08:49)
[2021-11-02] MEDS ORDERED: ROPIVACAINE 0.5% 5MG/ML 30ML IJ ONE (11:56)
[2021-11-02] MEDS ORDERED: DEXAMETHASONE SOD PHOSPHATE 4 MG/ML 1ML VIAL ONE (12:03)
[2021-11-02] MEDS ORDERED: MIDAZOLAM HCL 1 MG/ML 2ML VIAL ONE (12:14)
[2021-11-02] MEDS ORDERED: TRANEXAMIC ACID 1000MG/10ML ONE ×2 (12:26→17:24)
[2021-11-02] MEDS ORDERED: PROPOFOL 10 MG/ML 20ML VIAL IV ONE (12:39)
[2021-11-02] MEDS ORDERED: ROCURONIUM 10MG/1ML SYR 10 MG/ML ML ONE ×2 (13:32→14:43)
[2021-11-02] MEDS ORDERED: GLYCOPYRROLATE 1 MG/5 ML SYRINGE ONE (13:32)
[2021-11-02] MEDS ORDERED: EPHEDRINE SULFATE 50 MG/ML AMPULE ONE (14:09)
[2021-11-02] MEDS: CEFAZOLIN SODIUM 1 GM VIAL ONE ×2 (14:51→14:52)
[2021-11-02] MEDS ORDERED: ONDANSETRON 4MG INJ IVP PRN (17:30)
[2021-11-02] MEDS ORDERED: FE FUMARATE/FA/MV, MIN COMB#15 1 TAB PO PRN (17:30)
[2021-11-02] MEDS ORDERED: POTASSIUM CHLORIDE 20MEQ/100ML 100 ML IV PRN (17:30)
[2021-11-02] MEDS ORDERED: ACETAMINOPHEN 500 MG TABLET PO SCH (17:30)
[2021-11-02] MEDS ORDERED: POTASSIUM CHLORIDE 10% ELIXIR 20 MEQ/15 ML UDCUP PO PRN (17:30)
[2021-11-02] MEDS: 0.9%NACL 1000ML 1,000 ML IV SCH (17:30)
[2021-11-02] MEDS ORDERED: LIDOCAINE HCL-MPF 1% 2ML VIAL IV PRN (17:30)
[2021-11-02] MEDS ORDERED: KCL 20 MEQ ERTAB PO PRN (17:30)
[2021-11-02] MEDS ORDERED: DiphenhydrAMINE HCL 50 MG/ML VIAL IVP PRN (17:30)
[2021-11-02] MEDS ORDERED: NEOSTIGMINE 5MG/5ML SYR IV ONE (18:02)
[2021-11-02] MEDS ORDERED: TRIAMCINOLONE ACETONIDE 15 GM TP PRN (20:00)
[2021-11-02] MEDS ORDERED: PHARMACY COMMUNICATION MISC SCH (20:30)
[2021-11-02] MEDS: Rosuvastatin Calcium 5 MG PO SCH (21:00)
[2021-11-02] MEDS: NIFEDIPINE ER 30 MG TAB PO SCH (21:00)
[2021-11-02] MEDS: Fluticasone/Umeclidin/Vilanter (Trelegy Ellipta 100-62.5- IH SCH (21:00)
[2021-11-02] MEDS: FAMOTIDINE 20MG TAB PO SCH (22:52)
[2021-11-02] MEDS: MONTELUKAST SODIUM 10 MG TAB PO SCH (22:52)
[2021-11-02] MEDS: LORATADINE 10 MG TABLET PO SCH (22:52)
[2021-11-02] MEDS ORDERED: TRIAMCINOLONE ACETONIDE 0.1% CREAM 15GM TP PRN (23:00)
[2021-11-03] VITALS (8 sets, daily range): BP systolic 119–144; BP diastolic 49–68
[2021-11-03] MEDS: 0.9%NACL 1000ML 1,000 ML IV SCH ×2 (02:06→13:30)
[2021-11-03 04:17] LABS: HEMATOCRIT 32.9 % (36-48); MEAN CORPUSCULAR HEMOGLOBIN 31.9 pg (27.0-33.0); MEAN CORPUSCULAR HGB CONC 34.7 g/dL (32.0-36.0); MEAN CORPUSCULAR VOLUME 92.2 fL (79-99); RED BLOOD CELL COUNT(AUTO) 3.57 MIL/uL (4.00-5.50); RED CELL DISTRIBUTION WIDTH 13.4 % (11.0-15.5); WHITE BLOOD COUNT (AUTO) 11.1 K/uL (4.8-10.8)
[2021-11-03 04:19] LABS: POTASSIUM 4.5 mmol/L (3.5-5.1)
[2021-11-03] MEDS: ACETAMINOPHEN 500 MG TABLET PO SCH ×3 (06:00→21:29)
[2021-11-03] MEDS: LEVOTHYROXINE 150 MCG TABLET PO SCH (06:30)
[2021-11-03] MEDS: LEVOTHYROXINE 25 MCG TABLET PO SCH (06:30)
[2021-11-03] MEDS: KETOROLAC 15MG/ML VIAL (15MG/ML) IV PRN ×2 (07:58→23:47)
[2021-11-03] MEDS: FUROSEMIDE 40 MG TABLET PO SCH ×2 (09:00→10:07)
[2021-11-03] MEDS: ENOXAPARIN SODIUM 40 MG/0.4 ML SYRINGE SQ SCH ×2 (09:00→10:09)
[2021-11-03] MEDS: LOSARTAN 50 MG TABLET PO SCH ×2 (09:00→10:07)
[2021-11-03] MEDS: FAMOTIDINE 20MG TAB PO SCH ×2 (10:07→21:24)
[2021-11-03] MEDS: POLYETHYLENE GLYCOL 3350 17 GM POWD.PACK PO SCH (10:08)
[2021-11-03] MEDS: FLUTICASONE PROPIONATE 50MCG/SPRAY 16 GM BOTTLE EN SCH (10:13)
[2021-11-03] MEDS: ASPIRIN 81 MG EC TAB PO SCH ×2 (12:50→21:24)
[2021-11-03] MEDS: NITROFURANTOIN MONOHYD/M-CRYST 100 MG CAPSULE PO SCH ×2 (12:50→21:24)
[2021-11-03] MEDS: CALCIUM CARB 500MG PO PRN ×2 (12:51→21:24)
[2021-11-03] MEDS: Rosuvastatin Calcium 5 MG PO SCH (21:00)
[2021-11-03] MEDS: Fluticasone/Umeclidin/Vilanter (Trelegy Ellipta 100-62.5- IH SCH (21:00)
[2021-11-03] MEDS: NIFEDIPINE ER 30 MG TAB PO SCH (21:24)
[2021-11-03] MEDS: MONTELUKAST SODIUM 10 MG TAB PO SCH (21:24)
[2021-11-03] MEDS: LORATADINE 10 MG TABLET PO SCH (21:24)
[2021-11-04 04:08] VITALS: BP 154/65
[2021-11-04] MEDS: LEVOTHYROXINE 150 MCG TABLET PO SCH (06:14)
[2021-11-04] MEDS: LEVOTHYROXINE 25 MCG TABLET PO SCH (06:14)
[2021-11-04] MEDS: ACETAMINOPHEN 500 MG TABLET PO SCH ×2 (06:18→13:36)
[2021-11-04 08:00] VITALS: BP 146/56
[2021-11-04] MEDS: ENOXAPARIN SODIUM 40 MG/0.4 ML SYRINGE SQ SCH (09:00)
[2021-11-04] MEDS: FLUTICASONE PROPIONATE 50MCG/SPRAY 16 GM BOTTLE EN SCH (09:00)
[2021-11-04] MEDS: FAMOTIDINE 20MG TAB PO SCH (09:02)
[2021-11-04] MEDS: NITROFURANTOIN MONOHYD/M-CRYST 100 MG CAPSULE PO SCH (09:02)
[2021-11-04] MEDS: ASPIRIN 81 MG EC TAB PO SCH (09:03)
[2021-11-04] MEDS: LOSARTAN 50 MG TABLET PO SCH (09:03)
[2021-11-04] MEDS: FUROSEMIDE 40 MG TABLET PO SCH (09:03)
[2021-11-04] MEDS: POLYETHYLENE GLYCOL 3350 17 GM POWD.PACK PO SCH (09:08)
[2021-11-04] MEDS ORDERED: KETO10 PO (11:16)
[2021-11-04] MEDS ORDERED: ACET-2743 PO (11:16)
[2021-11-04] MEDS ORDERED: NITR100C4 PO (11:18)
[2021-11-04 12:00] VITALS: BP 155/57
[2021-11-04] MEDS: KETOROLAC 15MG/ML VIAL (15MG/ML) IV PRN (13:36)
[2021-11-05] MEDS ORDERED: BISACODYL 10 MG SUPP.RECT RC PRN (17:30)
== END 2021-11-04 15:30 | disposition home health service (06) | DRG 483 ==
LOC: DAHIP 11-02 07:57 → 4BH 11-02 19:27
PROVIDERS: ADMIT Orthopaedic Surgery; ATTEND Orthopaedic Surgery
PROC: 0RRJ0JZ Replacement of Right Shoulder Joint with Synthetic Substitute, Open Approach (ICD-10-PCS; principal; 2021-11-02 13:24)
PROC: 3E0T3BZ Introduction of Anesthetic Agent into Peripheral Nerves and Plexi, Percutaneous Approach (ICD-10-PCS; 2021-11-02 13:24)
DX: M19.011 Primary osteoarthritis, right shoulder (principal); N39.0 Urinary tract infection, site not specified; G89.29 Other chronic pain; B96.20 Unspecified Escherichia coli [E. coli] as the cause of diseases classified elsewhere; E78.5 Hyperlipidemia, unspecified; Z20.822 Contact with and (suspected) exposure to COVID-19; I10 Essential (primary) hypertension; J44.9 Chronic obstructive pulmonary disease, unspecified; Z82.49 Family history of ischemic heart disease and other diseases of the circulatory system; Z83.3 Family history of diabetes mellitus
CPT/HCPCS: 36415; 71045; 73030; 80048; 81001; 85025; 85027; 85610; 87077; 87088; 87186; 87635; 87641; 97039; A4565; C1776; G0378; J0690; J1100; J1580; J1650; J1885; J2250; J2405; J2704; J2710; J2795; J3490; J7030; J7120

== ENCOUNTER 2022-02-22 06:08 | Day surgery (SDC) | payer MEDICARE ==
[2022-02-20 11:32] LABS: BASOPHILS % (AUTO) 0.8 % (0.0-5.0); EOSINOPHILS % (AUTO) 3.6 % (0.0-8.0); HEMATOCRIT 44.2 % (36-48); LYMPHOCYTES % (AUTO) 25.2 % (21.0-51.0); MEAN CORPUSCULAR HGB CONC 33.7 g/dL (32.0-36.0); MEAN CORPUSCULAR VOLUME 92.1 fL (79-99); MONOCYTES % (AUTO) 8.8 % (3.0-13.0); NEUTROPHILS % (AUTO) 61.2 % (40.0-77.0); PLATELET COUNT (AUTO) 243 K/uL (130-400); RED CELL DISTRIBUTION WIDTH 13.3 % (11.0-15.5); WHITE BLOOD COUNT (AUTO) 7.4 K/uL (4.8-10.8)
[2022-02-20 11:39] LABS: CREATININE 1.1 mg/dL (0.5-1.5); POTASSIUM 3.8 mmol/L (3.5-5.1)
[2022-02-21 08:36] VITALS: BP 127/64
[2022-02-22] VITALS (14 sets, daily range): BP systolic 13–134; BP diastolic 52–70
[~2022-02-22] VITALS: Ht 170.2 cm; Wt 114.8 kg
[~2022-02-22 06:08] MED LIST changes: +CEFAZOLIN SODIUM 1 GM VIAL IVP SCH; +FLUT15.845 NS; +FURO40TA5 PO; +LIDOCAINE HCL MDV 0.5% 50ML VIAL IJ ONE; +LORA10TA7 PO; +LOSA50TA64 PO; +NIFE30TA98 PO; +PROPOFOL 1000 MG/100 ML 100 ML IV ONE; +ROSU5TAB12 PO
[2022-02-22] MEDS ORDERED: LACTATED RINGERS 1000ML 1,000 ML IV ONE (06:21)
[2022-02-22] MEDS ORDERED: FENTANYL CITRATE PF 50 MCG/1 ML 2ML VIAL ONE ×2 (07:08)
[2022-02-22] MEDS ORDERED: MIDAZOLAM HCL 1 MG/ML 2ML VIAL ONE (07:08)
[2022-02-22] MEDS ORDERED: LABETALOL 20MG SYG IV ONE (07:58)
== END 2022-02-22 10:30 | disposition home or self-care (01) ==
LOC: DAH 06:08
PROVIDERS: ATTEND Neurological Surgery
DX: G56.01 Carpal tunnel syndrome, right upper limb (principal); I10 Essential (primary) hypertension; J44.9 Chronic obstructive pulmonary disease, unspecified; K21.9 Gastro-esophageal reflux disease without esophagitis; E66.01 Morbid (severe) obesity due to excess calories; Z79.899 Other long term (current) drug therapy; Z88.2 Allergy status to sulfonamides; Z79.890 Hormone replacement therapy; Z88.6 Allergy status to analgesic agent; Z91.040 Latex allergy status
CPT/HCPCS: 93005; 87426; 80048; 85025; 36415; 64721; A6260; A4663; J7120; J3010 ×2; J0690; J2250; J2704; J3490; A4215; A4223; A4222; A4221

== ENCOUNTER 2023-06-18 15:38 | Emergency (ER) | payer MEDICARE ==
[~2023-06-18] VITALS: Ht 167.6 cm; Wt 115.7 kg
[~2023-06-18 15:38] MED LIST changes: -CEFAZOLIN SODIUM 1 GM VIAL IVP SCH; -LIDOCAINE HCL MDV 0.5% 50ML VIAL IJ ONE; +MONT-46 PO; -MONT10TA21 PO; +NIFE-78 PO; -NIFE30TA98 PO; -PROPOFOL 1000 MG/100 ML 100 ML IV ONE
[2023-06-18 15:40] VITALS: BP 139/44; PULSE 61; RESP 16
[2023-06-18 16:13] LABS: BASOPHILS # (AUTO) 0.12 K/uL (0.00-0.20); BASOPHILS % (AUTO) 1.2 % (0.0-5.0); EOSINOPHILS # (AUTO) 0.16 K/uL (0.00-0.70); EOSINOPHILS % (AUTO) 1.6 % (0.0-8.0); HEMATOCRIT 43.6 % (36-48); IMMATURE GRANULOCYTE ABSOLUTE 0.04 K/uL (0-1); LYMPHOCYTES # (AUTO) 2.5 K/uL (1.0-4.8); LYMPHOCYTES % (AUTO) 25.3 % (21.0-51.0); MEAN CORPUSCULAR HEMOGLOBIN 31.3 pg (27.0-33.0); MEAN CORPUSCULAR HGB CONC 34.6 g/dL (32.0-36.0); MEAN CORPUSCULAR VOLUME 90.5 fL (79-99); MONOCYTES # (AUTO) 0.9 K/uL (0.1-1.0); MONOCYTES % (AUTO) 8.9 % (3.0-13.0); NEUTROPHILS # (AUTO) 6.3 K/uL (1.8-7.7); NEUTROPHILS % (AUTO) 62.6 % (40.0-77.0); PLATELET COUNT (AUTO) 228 K/uL (130-400); RED BLOOD CELL COUNT(AUTO) 4.82 MIL/uL (4.00-5.50); RED CELL DISTRIBUTION WIDTH 13.4 % (11.0-15.5); WHITE BLOOD COUNT (AUTO) 10.1 K/uL (4.8-10.8)
[2023-06-18 16:26] LABS: CREATININE 1.1 mg/dL (0.5-1.5)
[2023-06-18 16:31] LABS: ALBUMIN 3.1 g/dL (3.5-5.0); BILIRUBIN,TOTAL 0.5 mg/dL (0.2-1.0)
== END 2023-06-18 22:28 | disposition left against medical advice (07) ==
LOC: EDH 15:38
DX: F41.9 Anxiety disorder, unspecified (principal); I11.0 Hypertensive heart disease with heart failure; I50.9 Heart failure, unspecified; J45.909 Unspecified asthma, uncomplicated; E03.9 Hypothyroidism, unspecified; Z88.2 Allergy status to sulfonamides; Z88.8 Allergy status to other drugs, medicaments and biological substances; Z91.012 Allergy to eggs; Z91.010 Allergy to peanuts; Z91.018 Allergy to other foods; Z79.899 Other long term (current) drug therapy; Z90.49 Acquired absence of other specified parts of digestive tract; Z90.89 Acquired absence of other organs
CPT/HCPCS: 36415; 71045; 80053; 83880; 84484; 85025; 93005

== ENCOUNTER 2024-07-08 06:20 | Day surgery (SDC) | payer MEDICARE ==
--- NOTE | 2024-07-02 14:02 | EKG ---
[facility] Test Date: 2024-07-02 Test Time: 14:52:49 Pat Name: RANDALL FLORES Department: [facility] Room: Gender: F Lipcoat Sprayer: [id number] : 1940 Requested By: JANETT TERRAZAS Order Number: [id number] Reading MD: Mathew Davis Measurements Intervals [place] Rate: 50 P: 0 MI: 0 QRS: 54 QRSD: 120 T: 36 QT: 409 QTc: 372 Interpretive Statements Atrial fibrillation Nonspecific intraventricular conduction delay Compared to ECG 06/18/2023 16:16:30 Intraventricular conduction delay now present Sinus rhythm no longer present Electronically Signed On 07-02-2024 18:30:05 CUTTER GRINDER OPERATOR by Mathew Davis Please click the below link to view image of tracing.
[2024-07-02 14:06] VITALS: BP 131/71; PULSE 65; RESP 18; TEMP 97.7
[2024-07-02 14:15] LABS: INR 0.97 (0.85-1.15); PROTHROMBIN TIME 10.3 SEC (9.6-11.6)
--- NOTE | 2024-07-03 12:30 | EKG ---
[facility] Test Date: 2024-07-02 Test Time: 15:30:50 Pat Name: RANDALL FLORES Department: [facility] Room: Gender: Female Prescriptionist: [id number] : 1940 Requested By: JANETT TERRAZAS Order Number: [id number] Reading MD: Measurements Intervals [place] Rate: 53 P: 59 TN: 167 QRS: 50 QRSD: 92 T: 24 QT: 408 QTc: 376 Interpretive Statements Sinus rhythm Atrial premature complex Low voltage, precordial leads No previous ECG available for comparison Please click the below link to view image of tracing.
--- NOTE | 2024-07-07 13:47 | NUR ---
RE: EKG REPORTED EKG RESULTS TO DR LIANG, NO NEW ORDERS RECEIVED.
[2024-07-08] VITALS (10 sets, daily range): BP systolic 102–133; BP diastolic 55–65; PULSE 52–60; RESP 12–19; TEMP 97–97.5
[~2024-07-08] VITALS: Ht 170.2 cm; Wt 113.7 kg
[~2024-07-08 06:20] MED LIST changes: +ACET-2521 PO; -ALBU90AE IH; -ASCO500C18 PO; +BISA-151 PO; +CETI-89 PO; -FLUT15.845 NS; +FLUT1AER IH; -FLUT1BLS3 IH; +LEVO175C2 PO; -LEVO175T9 PO; -LORA10TA7 PO; +MAGN400T40 PO; -MONT-46 PO; +OMEG100033 PO; +POTA99CA PO; -ROSU5TAB12 PO; +ROSU5TAB51 PO; +WHEA1TAB PO
[2024-07-08] MEDS ORDERED: ceFAZolin SODIUM 1 GM VIAL ONE (07:23)
[2024-07-08] MEDS ORDERED: BUPIvacaine/PF 0.5% 30ML VIAL ONE (07:23)
[2024-07-08 07:25] LABS: CREATININE 1.3 mg/dL (0.5-1.0); POTASSIUM 3.8 mmol/L (3.5-5.1)
[2024-07-08 07:26] LABS: BASOPHILS # (AUTO) 0.07 K/uL (0.00-0.20); BASOPHILS % (AUTO) 0.8 % (0.0-5.0); EOSINOPHILS # (AUTO) 0.18 K/uL (0.00-0.70); EOSINOPHILS % (AUTO) 2.1 % (0.0-8.0); HEMATOCRIT 43.9 % (36-48); IMMATURE GRANULOCYTE ABSOLUTE 0.02 K/uL (0-1); LYMPHOCYTES # (AUTO) 2.3 K/uL (1.0-4.8); LYMPHOCYTES % (AUTO) 26.1 % (21.0-51.0); MEAN CORPUSCULAR HEMOGLOBIN 30.8 pg (27.0-33.0); MEAN CORPUSCULAR HGB CONC 33.5 g/dL (32.0-36.0); MEAN CORPUSCULAR VOLUME 91.8 fL (79-99); MONOCYTES # (AUTO) 0.8 K/uL (0.1-1.0); MONOCYTES % (AUTO) 9.5 % (3.0-13.0); NEUTROPHILS # (AUTO) 5.4 K/uL (1.8-7.7); NEUTROPHILS % (AUTO) 61.3 % (40.0-77.0); PLATELET COUNT (AUTO) 200 K/uL (130-400); RED BLOOD CELL COUNT(AUTO) 4.78 MIL/uL (4.00-5.50); RED CELL DISTRIBUTION WIDTH 13.6 % (11.0-15.5); WHITE BLOOD COUNT (AUTO) 8.8 K/uL (4.8-10.8)
[2024-07-08] MEDS ORDERED: LIDOCAINE HCL-MPF 0.5% 50ML VIAL IJ ONE (07:26)
[2024-07-08] MEDS ORDERED: LIDOCAINE PF 100MG/5ML (2%) SYRINGE 5ML ONE (07:29)
[2024-07-08] MEDS ORDERED: MIDAZOLAM HCL 1 MG/ML 2ML VIAL ONE (07:30)
[2024-07-08] MEDS ORDERED: proPOFol 10 MG/ML 20ML VIAL IV ONE ×2 (07:30→08:19)
[2024-07-08] MEDS ORDERED: phenylEPHRINE HCL 10 MG/ML 1ML VIAL IV ONE (07:39)
[2024-07-08] MEDS: LACTATED RINGERS 1000ML 1,000 ML IV ONE (07:45)
[2024-07-08] MEDS: ceFAZolin SODIUM 2 GM VIAL ONE (07:46)
--- NOTE | 2024-07-08 07:53 | OP ---
Operative Note: DATE OF PROCEDURE: 07/08/24 SURGEON: JANETT TERRAZAS MD ANESTHESIA: [Beth block plus local] ANESTHESIOLOGIST/DISCOVERY MANAGER: [Randy Newsome DISCOVERY MANAGER] PREOPERATIVE DIAGNOSIS: [Right hand middle and ring trigger fingers] POSTOPERATIVE DIAGNOSIS: [Same] PROCEDURE: [Trigger finger release right middle and ring finger] ESTIMATED BLOOD LOSS: [Less than 5 mL] INDICATIONS: [83-year-old female with history of triggering in the her fingers mostly in the middle and ring one of them becoming very painful. The patient is brought to the operating room for release of the A1 mira as treatment for the trigger finger. Procedure understood, risks, benefits and possible complications and agreed signed the consent form. The procedure was performed 1st in the middle finger and then in the ring finger but it will be dictated as a single procedure which was similar] DESCRIPTION OF PROCEDURE: [After adequate general anesthesia was achieved the patient's right upper extremity was prepped and draped in usual manner previous placement of the tourniquet on proximal arm and Beth block was applied by anesthesia. Attention was given to the palmar aspect of the hand where a transverse incisions was carried down in the distal palmar crease at the level of the third and 4th metacarpal phalangeal joint area through the skin followed by blunt dissection of the subcutaneous tissue identifying immediately the flexor tendon and after retractors were applied the proximal aspect of the A1 mira was identified and elevated with a hemostat and then with the use of a tenotomy scissor the mira was transected longitudinally opened the area noticing that the tendon had movement. Range of motion of the digit noticed free movement in flexion and extension with no problem. After infiltration of the wounds with Marcaine 0.5% without epinephrine was applied, the tourniquet was deflated minimal bleeders were controlled with use of Bovie cautery. And then closed with the use of 3-0 nylon vertical mattress stitches x2. A soft dressing was applied to cover the incision. The drapes were then removed but the patient was then awakened and transferred to recovery room for follow-up by anesthesia. There were no complications during the procedure] JANETT TERRAZAS MD Jul 08, 2024 07:53
[2024-07-08] MEDS ORDERED: ondanSETRON 4MG INJ ONE (08:08)
[2024-07-08] MEDS ORDERED: dexaMETHasone SOD PHOSPHATE 4 MG/ML 1ML VIAL ONE (08:08)
[2024-07-08] MEDS: ceFAZolin SODIUM 2 GM VIAL IVPB ONE (08:15)
--- NOTE | 2024-07-08 09:24 | NUR ---
Full and complete discharge instructions given to Patient and Family both verbally and in writing. Explained Surgical procedure precautions and follow up. Neurovascularly intact. Sling in use appropiately. Sensation to hand positive and can wiggle fingers. Ambulated to bathroom and voided large amount of clear yellow urine. All questions answered. PIV removed with catheter tip intact. Home with Family Friend W/C to [facility].
== END 2024-07-08 09:35 | disposition home or self-care (01) ==
LOC: DAH 06:20
PROVIDERS: ATTEND Orthopaedic Surgery
DX: M65.331 Trigger finger, right middle finger (principal); M65.341 Trigger finger, right ring finger; E78.5 Hyperlipidemia, unspecified; E66.01 Morbid (severe) obesity due to excess calories; M18.11 Unilateral primary osteoarthritis of first carpometacarpal joint, right hand; I10 Essential (primary) hypertension; J44.9 Chronic obstructive pulmonary disease, unspecified; Z90.89 Acquired absence of other organs; Z79.899 Other long term (current) drug therapy; Z79.890 Hormone replacement therapy; Z98.890 Other specified postprocedural states; Z87.891 Personal history of nicotine dependence; Z88.8 Allergy status to other drugs, medicaments and biological substances
CPT/HCPCS: 85610; 36415 ×2; 93005; 26055 ×2; 80048; 85025; J1100; A4223 ×2; A4221; A4663; J7120; J0690 ×3; J2003; J2250; J2704 ×2; J2405; J0665 ×2; J2371; J3490; A6445; A6223; A4649 ×2; A4930; A5120; A4215 ×2; A4222

== ENCOUNTER → 2024-07-28 | Outpatient (CLI) | payer MEDICARE ==
--- NOTE | 2024-07-28 14:58 | HMCIMG ---
CT MAXILLOFACIAL W/O CONTRAST HISTORY: Right-sided enterocolitis swelling COMPARISON: None TECHNIQUE: Multiple sequential high-resolution axial images of the paranasal sinuses were obtained. Postprocessing sagittal and coronal reconstruction images were also obtained. Patient was not given contrast through intravenous route. FINDINGS: There is calcification noted in the right angle of mandible superficially may be related to calcified lymph node versus dystrophic calcification. Clinical correlation is recommended. There are dental implant material causing artifacts limiting evaluation. Parotid glands and submandibular glands are grossly unremarkable. Nasal septum is grossly midline. There is no evidence of mucoperiosteal thickening involving the paranasal sinuses. The infundibula are patent bilaterally. No acute displaced fracture is seen. There is no evidence of air-fluid level in the paranasal sinuses. Parapharyngeal fat planes are preserved bilaterally. IMPRESSION: 1. No acute displaced fracture is seen. There is calcification noted in the right angle of mandible superficially may be related to calcified lymph node versus dystrophic calcification. Clinical correlation is recommended. CT was performed with one or more following dose reduction techniques: automated exposure control, adjustment of the mA and kv according to patient's size, or use of a iterative reconstruction technique.
== END | disposition home or self-care (01) ==
LOC: RAH 13:38
PROVIDERS: ATTEND Internal Medicine
DX: R22.0 Localized swelling, mass and lump, head (principal); R68.84 Jaw pain; G89.29 Other chronic pain
CPT/HCPCS: 70486

== ENCOUNTER → 2024-09-03 | Outpatient (CLI) | payer MEDICARE ==
[~2024-09-03] MED LIST changes: -LEVO175C2 PO; +LEVO175C3 PO
[2024-09-03 09:18] LABS: CREATININE 1.4 mg/dL (0.5-1.0)
== END | disposition home or self-care (01) ==
LOC: LAB 08:19
PROVIDERS: ATTEND Student in an Organized Health Care Education/Training Program
DX: D48.7 Neoplasm of uncertain behavior of other specified sites (principal)
CPT/HCPCS: 36415; 82565; 84520

== ENCOUNTER → 2024-09-04 | Outpatient (CLI) | payer MEDICARE ==
[~2024-09-04] MED LIST changes: +GADOTERATE MEGLUMINE 10 MMOL/20 ML VIAL IV ONE
--- NOTE | 2024-09-04 16:36 | HMCIMG ---
MRI FACE WWO CONT HISTORY: Neoplasm COMPARISON: None TECHNIQUE: MRI of the maxillofacial was performed utilizing multiple pulse sequences in axial, coronal and sagittal planes. Patient was given 20 cc of Clariscan through intravenous route. Marker was placed over the region of interest. FINDINGS: Bilateral orbital globes are intact. No evidence of intraconal or extraconal mass is seen. Minimal nasoseptal deviation towards left is seen. There is nasal polyposis. Minimal mucoperiosteal thickening are seen in the ethmoid adnexa sinus bilaterally. There are mild bilateral mastoid effusion. Over the region of interest in the right facial area where marker was placed, there is oval-shaped soft tissue structure measuring 13 x 8 mm near the right ankle of mandible may be related to lymph node with soft tissue nodule excluded. 3 month follow-up study with an without contrast is recommended. IMPRESSION: 1. Findings as described above.
--- NOTE | 2024-09-04 16:44 | HMCIMG ---
MR BRAIN WWO CON HISTORY: All uncertain behavior COMPARISON: None TECHNIQUE: MRI of the brain was performed utilizing multiple pulse sequences in axial, coronal and sagittal planes. Patient was given 20 cc of Clariscan through intravenous route. FINDINGS: The ventricles and extraventricular CSF spaces are dilated consistent with cerebral atrophy. Nonspecific white matter changes are seen. There is no midline shift, mass effect or herniation. No subacute hemorrhage is seen. No MR evidence of acute infarct is seen in the diffusion weighted images. Cerebellar tonsils are in normal position. No evidence of mucoperiosteal thickening is seen of the visualized paranasal sinuses. No MR evidence of mass lesion or abnormal enhancement is seen. Minimal bilateral mastoid effusions seen. IMPRESSION: 1. No MR evidence of acute infarct is seen in the diffusion weighted images. Atrophy and white matter changes. No mass lesion or abnormal enhancement is seen.
== END | disposition home or self-care (01) ==
LOC: RAH 13:44
PROVIDERS: ATTEND Student in an Organized Health Care Education/Training Program
DX: G31.9 Degenerative disease of nervous system, unspecified (principal); J33.9 Nasal polyp, unspecified; H74.8X3 Other specified disorders of middle ear and mastoid, bilateral; D48.7 Neoplasm of uncertain behavior of other specified sites
CPT/HCPCS: 70553; 70543; A9575

== ENCOUNTER → 2024-12-08 | Outpatient (CLI) | payer MEDICARE ==
--- NOTE | 2024-12-09 08:19 | HMCIMG ---
EXAM: MRI Face without IV Contrast. CLINICAL HISTORY: Localized neck swelling, mass, and lump. TECHNIQUE: Multiplanar multi-sequence MRI of the face. CONTRAST: None. COMPARISON: Prior MRI face dated 04 Sep 2024. FINDINGS: No bone marrow edema, fracture, or aggressive bony lesion. Symmetrical facial soft tissues without abnormal signals or mass. The bilateral orbits and orbital contents are within normal limits. The paranasal sinuses are clear. Nasal cavities and nasopharynx are unremarkable. An 11 x 9 mm T2 hyperintense cystic lesion in the left vallecula, consistent with a mucous retention cyst. The bilateral parotid and submandibular glands are unremarkable. The bilateral mastoid air cells are clear. The imaged portions of the intracranial substances are grossly unremarkable. CSF signal intensity within the pituitary fossa with flattening of the pituitary gland, probably a change of partial empty Sella. IMPRESSION: An 11 x 9 mm T2 hyperintense cystic lesion in the left vallecula, consistent with a mucous retention cyst. No abnormal soft tissue mass suprahyoid or infrahyoid neck spaces. Compared to the prior study, there is no interval change, a stable mucous retention cyst in the left vallecula. /[place]
== END | disposition home or self-care (01) ==
LOC: RAH 12:46
PROVIDERS: ATTEND Internal Medicine
DX: E04.1 Nontoxic single thyroid nodule (principal); R22.0 Localized swelling, mass and lump, head
CPT/HCPCS: 70543; A9575